=== PATIENT | female | born 1980 | race Caucasian/White ===

== ENCOUNTER 2016-11-05 18:31 | Emergency (ER) | payer SELFPAY ==
[~2016-11-05 18:31] MED LIST: CARISOPRODOL350 M1; HYDROCODONE BIT1 T54; NORCO 10/325 MG1 TAB PO; PROAIR HFA0.09 MG/Ac IH; XANAX0.5 MG PO
--- NOTE | 2016-11-05 19:29 | NUR ---
PATIENT LEFT WITHOUT BEING SEEN BY DR. MARY. NO FURTHER CARE PROVIDED FOR PATIENT.
== END 2016-11-05 19:29 | disposition left against medical advice (07) ==
LOC: MED 18:31
DX: R10.9 Unspecified abdominal pain (principal); Z53.21 Procedure and treatment not carried out due to patient leaving prior to being seen by health care provider

== ENCOUNTER 2018-01-06 00:54 | Emergency (ER) | payer OTHER ==
[~2018-01-06] VITALS: Ht 170.2 cm; Wt 126.7 kg
[~2018-01-06 00:54] MED LIST changes: +ALBU-136 IH; +CARI350T34; -CARISOPRODOL350 M1; -HYDROCODONE BIT1 T54; -NORCO 10/325 MG1 TAB PO; -PROAIR HFA0.09 MG/Ac IH; -XANAX0.5 MG PO; +[UNRECOGNIZED DRUG - CODE]
[2018-01-06 00:59] VITALS: BP 136/90
[2018-01-06] MEDS ORDERED: KETOROLAC 60 MG/2 ML VIAL IM ONE (01:30)
[2018-01-06] MEDS ORDERED: MORPHINE SULFATE 4 MG/ML SYR IM ONE (01:30)
[2018-01-06 02:20] VITALS: BP 124/88
== END 2018-01-06 02:20 | disposition home or self-care (01) ==
LOC: MED 00:54
DX: M54.41 Lumbago with sciatica, right side (principal); J45.909 Unspecified asthma, uncomplicated; I10 Essential (primary) hypertension; E07.9 Disorder of thyroid, unspecified; Z79.899 Other long term (current) drug therapy; Z88.8 Allergy status to other drugs, medicaments and biological substances
CPT/HCPCS: 81002; 81025; 96372; 99284; J1885; J2270

== ENCOUNTER 2018-01-10 18:18 | Emergency (ER) | payer OTHER ==
[~2018-01-10] VITALS: Ht 170.2 cm; Wt 113.4 kg
[2018-01-10 18:35] VITALS: BP 142/102
--- NOTE | 2018-01-10 18:42 | NUR ---
PT TAKEN IN WHEELCHAIR TO ER BED 01
--- NOTE | 2018-01-10 18:46 | NUR ---
REPORT GIVEN TUSHAR HARRIS
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
--- NOTE | 2018-01-10 19:03 | NUR ---
URINE SAMPLE CUP HANDED TO PT
--- NOTE | 2018-01-10 19:10 | NUR ---
RECEIVED REPORT FROM AM NURSE. PT RESTING IN BED COMFORTABLY, RR EVEN AND UNLABORED. ALL NEEDS MET AT THIS TIME.
[2018-01-10] MEDS ORDERED: KETOROLAC 60 MG/2 ML VIAL IM ONE (19:35)
--- NOTE | 2018-01-10 20:15 | NUR ---
PT TAKEN TO CT
--- NOTE | 2018-01-10 20:30 | NUR ---
PT RESTING COMFORTABLY IN BED, PT REPORTS DECREASED PAIN, NO HIVES NOTED, PT DENIES ITCHING, SOB OR S/S OF ALLERGIC REACTION AT THIS TIME. ALL NEEDS MET AT THIS TIME.
--- NOTE | 2018-01-10 21:38 | NUR ---
Dr. Gunderson evaluating patient at bedside.
[2018-01-10 21:52] VITALS: BP 135/80
--- NOTE | 2018-01-10 21:52 | NUR ---
Note terrione in EDM - 01/10/18 at 2215 by THANIA Patient discharged with v/s stable. Written and verbal after care instructions given and explained. Patient alert, oriented and verbalized understanding of instructions. Ambulatory with steady gait. All questions addressed prior to discharge. ID band removed. Patient advised to follow up with PMD. Rx of NAPROSYN 500MG given. Patient educated on indication of medication including possible reaction and side effects. Opportunity to ask questions provided and answered.
--- NOTE | 2018-01-10 21:52 | NUR ---
Patient discharged with v/s stable. Written and verbal after care instructions given and explained by Dr. Gunderson. Patient alert, oriented and verbalized understanding of instructions. Ambulatory with steady gait. All questions addressed prior to discharge by Dr. Gunderson. ID band removed. Patient advised to follow up with PMD. Rx of NAPROSYN 500MG given. Patient educated on indication of medication including possible reaction and side effects by Dr. Gunderson. Opportunity to ask questions provided and answered by Dr. Gunderson.
== END 2018-01-10 21:52 | disposition home or self-care (01) ==
LOC: MED 18:18
DX: M51.16 Intervertebral disc disorders with radiculopathy, lumbar region (principal); M54.40 Lumbago with sciatica, unspecified side; J45.909 Unspecified asthma, uncomplicated; I10 Essential (primary) hypertension; E07.9 Disorder of thyroid, unspecified; Z88.8 Allergy status to other drugs, medicaments and biological substances; Z79.899 Other long term (current) drug therapy
CPT/HCPCS: 72131; 81002; 81025; 96372; 99284; J1885

== ENCOUNTER 2020-02-10 15:41 | Emergency (ER) | payer OTHER, SELFPAY ==
[~2020-02-10] VITALS: Ht 170.2 cm; Wt 104.3 kg
[2020-02-10 15:49] VITALS: BP 144/93
--- NOTE | 2020-02-10 15:58 | NUR ---
PATIENT AMBULATED TO BED 11.
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
[2020-02-10] MEDS ORDERED: KETOROLAC 60 MG/2 ML VIAL IM ONE (16:15)
--- NOTE | 2020-02-10 16:29 | NUR ---
PT TAKEN TO X-RAY
[2020-02-10 16:43] LABS: BASOPHILS % (AUTO) 0.3 % (0.0-2.0); EOSINOPHILS # (AUTO) 0.1 K/uL (0-0.4); EOSINOPHILS % (AUTO) 1.3 % (0.0-4.0); HEMATOCRIT 35.9 % (36-48); HEMOGLOBIN 11.8 g/dL (12.0-16.0); LYMPHOCYTES # (AUTO) 1.7 K/uL (2.5-16.5); LYMPHOCYTES % (AUTO) 15.5 % (20.5-51.1); MEAN CORPUSCULAR HEMOGLOBIN 27 pg (27-31); MEAN CORPUSCULAR HGB CONC 33 g/dL (33-37); MEAN CORPUSCULAR VOLUME 80.8 fL (80-94); MONOCYTES % (AUTO) 9.7 % (1.7-9.3); NEUTROPHILS # (AUTO) 7.9 K/uL (1.8-7.7); NEUTROPHILS % (AUTO) 73.2 % (42.2-75.2); PLATELET COUNT (AUTO) 365 K/uL (140-450); RED BLOOD CELL COUNT(AUTO) 4.44 MIL/uL (4.20-5.40); WHITE BLOOD COUNT (AUTO) 10.7 K/uL (4.8-10.8)
[2020-02-10 17:00] LABS: ALBUMIN 3.1 g/dL (3.4-5.0); ANION GAP 12.8 (8-16); CARBON DIOXIDE 27.8 mmol/L (21-32); POTASSIUM 3.6 mmol/L (3.5-5.1); TOTAL BILIRUBIN 0.4 mg/dL (0.0-1.0)
--- NOTE | 2020-02-10 18:10 | NUR ---
PT PLACED IN RIGHT VELCRO THUMB SPICA SPLINT, CMS WNL BEFORE AND AFTER.
[2020-02-10 18:36] VITALS: BP 132/74
--- NOTE | 2020-02-10 18:37 | NUR ---
Patient discharged with v/s stable. Written and verbal after care instructions given and explained. Patient alert, oriented and verbalized understanding of instructions. Ambulatory with steady gait. All questions addressed prior to discharge. ID band removed. Patient advised to follow up with PMD. Rx of tramadol, flexeril, keflex given. Patient educated on indication of medication including possible reaction and side effects. Opportunity to ask questions provided and answered.
== END 2020-02-10 18:00 | disposition home or self-care (01) ==
LOC: EEVIPCON 15:41 → MED 15:41
DX: M79.641 Pain in right hand (principal); N39.0 Urinary tract infection, site not specified; J45.909 Unspecified asthma, uncomplicated; I10 Essential (primary) hypertension; E07.9 Disorder of thyroid, unspecified; Z90.49 Acquired absence of other specified parts of digestive tract; Z98.890 Other specified postprocedural states; Z79.899 Other long term (current) drug therapy; Z88.8 Allergy status to other drugs, medicaments and biological substances
CPT/HCPCS: 29125; 36415; 70450; 73110; 73130; 74022; 80053; 81002; 81025; 83690; 85025; 96372; 99285; J1885

== ENCOUNTER 2020-08-27 15:22 | Emergency (ER) | payer MEDICAID, SELFPAY ==
[~2020-08-27] VITALS: Ht 172.7 cm; Wt 95.3 kg
[~2020-08-27 15:22] MED LIST changes: +[UNRECOGNIZED DRUG - CODE]; -[UNRECOGNIZED DRUG - CODE]
[2020-08-27 15:41] VITALS: BP 144/85
--- NOTE | 2020-08-27 15:50 | NUR ---
39/F BIB SELF C/O COUGH, FEVER, SORE THROAT, BODY ACHES X YESTERDAY. BLOOD SUGAR 199 AT THIS TIME. PT RUNS OUT OF MEDICINE FOR DM 2 WEEKS. PMH: DM, ASTHMA
--- NOTE | 2020-08-27 17:52 | NUR ---
COVID SWAB DONE.
[2020-08-27 17:56] VITALS: BP 144/85
--- NOTE | 2020-08-27 17:58 | NUR ---
Patient discharged with v/s stable. Written and verbal after care instructions given and explained. Patient alert, oriented and verbalized understanding of instructions. Ambulatory with steady gait. All questions addressed prior to discharge. ID band removed. Patient advised to follow up with PMD. Rx of Acetaminophen 500mg, Ventolin 90mcg, Promethazine DM 6.25, Metformin 1000mg given. Patient educated on indication of medication including possible reaction and side effects. Opportunity to ask questions provided and answered.
== END 2020-08-27 17:58 | disposition home or self-care (01) ==
LOC: MED 15:22
DX: B34.9 Viral infection, unspecified (principal); Z20.828 Contact with and (suspected) exposure to other viral communicable diseases; E11.9 Type 2 diabetes mellitus without complications; J45.909 Unspecified asthma, uncomplicated; I10 Essential (primary) hypertension; E07.9 Disorder of thyroid, unspecified; Z76.0 Encounter for issue of repeat prescription; Z79.899 Other long term (current) drug therapy; Z88.8 Allergy status to other drugs, medicaments and biological substances
CPT/HCPCS: 99283; U0003